=== PATIENT | female | born 1990 | race Caucasian/White ===

== ENCOUNTER 2016-10-06 08:23 | Inpatient (IN) ==
[2016-10-06] MEDS ORDERED: Famotidine 20 MG/2 ML VIAL IVP PRN (08:49)
[2016-10-06] MEDS ORDERED: Naloxone 0.4 MG/ML INJ IVP PRN (08:49)
[2016-10-06] MEDS ORDERED: Ondansetron 4 MG/2 ML VIAL IVP PRN (08:49)
[2016-10-06] MEDS ORDERED: Metoclopramide 10 MG/2 ML VIAL IVP PRN (08:49)
[2016-10-06 09:12] LABS: Basophils % 0.2 %; Eosinophils % 0.4 %; Hematocrit 37.8 % (35.3-44.9); Hemoglobin 12.9 g/dL (11.5-15.4); Immature Granulocytes % 0.5 % (0-4); Lymphocytes # 1.7 K/mcL (0.6-4.6); Mean Corpuscular HGB Conc 34.1 g/dL (31.6-35.5); Mean Corpuscular Hemoglobin 29.7 pg (28.0-33.3); Mean Corpuscular Volume 87.1 fL (83.0-100.0); Mean Platelet Volume 10.4 fL (9.4-12.4); Monocytes # 0.6 K/mcL (0.0-1.3); Monocytes % 5.3 %; Neutrophils # 8.7 K/mcL (1.6-8.9); Platelet Count 274 K/mcL (140-400); Red Blood Count 4.34 M/mcL (3.82-4.97); Red Cell Distribution Width 12.8 % (11.5-14.5); Segmented Neutrophils % 78.6 %
--- NOTE | 2016-10-06 12:21 | OB/GYN History & Physical ---
Date of Encounter: 10/06/16 Time of Encounter: 12:19 Assessment and Plan (1) with 37 or more completed weeks gestation Current visit: Yes Status: Acute ([id number]) 37w 4d SROM @ 04:45 this AM. Clear, moderate, no odor. Patient is followed by Dr. Ingram. Plan on intermittent monitoring. Observe for onset and progression of labor. (2) SROM (spontaneous rupture of membranes) Current visit: Yes Status: Acute as above. History of Present Illness Chief complaint: SROM HPI: Ms. Callejas is a 26 year old female presents from home with chief complaint SROM at 04:45 this morning. ([id number]) 37w 4d. Fluid described as moderate in qty, clear, no odor. Medications: vitamin PMH: migraine Allergies: hydromorphone - nausea, vomit OB: Dr. Ingram Blood type B+ GBS (-) Rubella (+) HbSAg (-, 03/09/17) T. Pallidum (-) Varicella (+) Male child Anticipated name: Denis Anticipate breast feeding Preferred horticultural services supervisor: [facility] Request circumcision. Past Med Surg Social Fam HX - Past Medical History Medical history: migraine, thyroid disease Psychiatric history: no psych history - Past Surgical History Surgical History: no surgical history - Social History Smoking Status: Never smoker Smokeless Tobacco Status: No Alcohol use: none Drug use: none - Family History Grandmother Hx Family Endocrine Disorder: Yes (diabetes) Obstetrical History - Pregnancies : 2 Para: 0 Term: 0 : 0 Ab's: 1 Livin Medications and Allergies Vit/Iron Fumarate/FA [ Tablet] 1 each PO DAILY 10/06/16 [ History] Allergies Hydromorphone [From Dilaudid] Adverse Reaction (Verified 10/06/16 08:34) Vomiting Review of System OB - Cardiovascular Cardiovascular: no chest pain, no dyspnea on exertion, no leg edema - Respiratory Respiratory: no cough, no chest congestion - Gastrointestinal Gastrointestinal: no abdominal pain, no change in stool character - Genitourinary Genitourinary: vaginal discharge (SROM) - Neurological Nerological: no abnormal gait Exam - Constitutional Constitutional: well developed, well nourished, no acute distress, average body habitus - HEENT HEENT: Mucus Membranes Moist - Lungs Respiratory exam: CTAB - Cardiovascular Cardiovascular exam: RRR, +S1, +S2 - Breasts Breast: bilateral: normal - Abdomen Abdomen: Present: bowel sounds normal, gravid, non tender - Extremities Extremities exam: normal capillary refill, normal inspection, radial pulses palpable and symetrical Results Result Diagrams: 10/06/16 09:00 All other labs normal. - VTE Reasons for not Prescribing Prophylaxis: Treatment not Indicated - Low risk for VTE
[2016-10-06] MEDS ORDERED: Ringers Solution, Lactated 1,000 ML IVC STA (17:56)
[2016-10-06] MEDS ORDERED: Oxytocin 20 units/ LR 1000 mL 20 UNIT/1,000 ML BAG IVC SCH (17:57)
[2016-10-06] MEDS ORDERED: Oxytocin 20 units/ LR 1000 mL 20 UNIT/1,000 ML BAG IVC ONE (18:04)
--- NOTE | 2016-10-06 18:14 | Anesthesia Evaluation PreOp ---
Date of Encounter: 10/06/16 Time of Encounter: 18:12 - Past History Planned Operation: JOAQUIM Cardiac History: Denies any Significant Hx Pulmonary History: Denies Any Significant HX TRAVELING SECRETARY History: Other (migraines that cause "stroke like symptoms" not on any tx currently) Other Medical History: Denies Any Significant HX Anesthesia History: No Prior Anesthetic Complications : Yes (37.4) Alcohol Use: none Drug use: none Medications and Allergies Vit/Iron Fumarate/FA [ Tablet] 1 each PO DAILY 10/06/16 [ History] Allergies Hydromorphone [From Dilaudid] Adverse Reaction (Verified 10/06/16 08:34) Vomiting - Meds/Allergy Pre-op Review Medications Reviewed: Yes Allergies Reviewed: Yes Beta Blockers on Current Med List: No Anesthesia Results - Labs 10/06/16 09:00 Anesthesia Exam Height: 5' Weight: 71kg NPO (# of Hours): 1hr Pain Scale: 1 Pain Scale Used: Numeric (1 - 10) - HEENT Pupil (Motor): Pupils equal Mallampati: II Teeth: Normal Oral Opening: Greater than 3 - TRAVELING SECRETARY LOC: Oriented TRAVELING SECRETARY Motor: Normal RUE, Normal LUE, Normal RLE, Normal LLE, Normal Face TRAVELING SECRETARY Sensory: Normal: RUE, LUE, RLE, LLE, Face - Cardiac Rhythm: Regular Murmur: None JVD: No Carotid Bruit: No - Pulmonary Breath Sounds: bilateral Clear Respiratory Effort: Symmetrical Anesthesia Assess/Plan ASA Score: 2 Modified Masha Scale for Level of Consciousness: Cooperative, oriented, and tranquil Anesthetic Plan: General (plan b), Regional (plan a) Autologous Blood: No (jehovahs witness (will accept epo and albumin)) Monitoring Plan: Standard Monitors
[2016-10-06] MEDS ORDERED: Ringers Solution, Lactated 500 ML IVC ONE (18:15)
[2016-10-06] MEDS ORDERED: EPHEDrine 50 MG/ML VIAL IVP PRN (18:15)
[2016-10-06] MEDS ORDERED: Epidural Premix (fent/bupiv) 110 ML EP SCH (18:15)
[2016-10-06] MEDS ORDERED: Penicillin G Potassium 5,000,000 UNIT in D5% in Water (Mini-Bag+) 100 ML IVPB ONE (18:18)
[2016-10-06] MEDS: Mag Hydrox/Al Hydrox/Simeth 30 ML UDC PO PRN (20:14)
--- NOTE | 2016-10-06 20:38 | OB Labor Progress Note ---
Date of Encounter: 10/06/16 Time of Encounter: 18:00 Labor Progress Note - Subjective Subjective: NOTE: Patient's last name is Júnior. Her 's last name is Victoriano. I spoke with the patient regarding the recommendation to begin pitocin. She expressed her frustration at the lack of progress without induction and was agreeable to beginning the medication. We discussed the rate of titrating the drip, which we have traditionally used Q30min. The patient would prefer Q40min. On presentation, the patient was offered induction which she declined preferring a trial for expectant management; at that time we discussed risks of doing so including risk of chorioamnionitis and the potential need for prophylactic antibiotics. Given the lack of progression and beginning of induction, the patient and I again discussed her risk of chorioamnionitis. The patient and were under the impression that something must happen at 24hrs post SROM. I clarified that studies have shown the risk for chorioamnionitis increases substantially after 24 hours; there is no hard rule rather compelling data regarding risks. They were questioning at what time would a be necessary. I explained to them there is no hard rule, rather the clinical decision is based on management of risk as evidenced by and maternal tolerance of labor. SROM was 04:45 this morning; appx 13hrs prior to our discussion. We discussed the nature of the membranes and mucous plug protecting against ascending infection, which was lost at SROM. We discussed risk to her and the fetus/. She and her were agreeable to beginning prophylaxis. She did desire to have literature on chorioamniotis. I provided her with UpToDate articles and extended the offer that I discuss with them any questions they may have: (1) rupture of membranes, (2) Intra-amniotic infection (clinical chorioamnionitis or triple I) , (3) Clinical features, evaluation, and diagnosis of sepsis in term and late infants. - Cervix Cervix: Per nursing: dilation 2-3, effacement 80%; unchanged since presentation. - Heart Tones Heart Tones: Reactive. Ranging 120-140s. - [place]: Pre-pitocin: Short duration mild contractions of inconsistent frequency. - Interventions Interventions: as per plan. - Plan Plan: 1. Induction of labor -Continuous heart rate monitor -Continuous TOCO monitor -Began pitocin drip per protocol with modification for titration Q40 min. 2. PROM SROM at 04:45am on 10/06/16. -Began empiric PCN per GBS protocol. -Per nursing, patient has been afebrile from presentation to start of PCN.
--- NOTE | 2016-10-06 21:30 | OB/GYN Progress Note ---
Date of Encounter: 10/06/16 Time of Encounter: 21:28 - Assessment and Plan (1) with 37 or more completed weeks gestation Current Visit: Yes Status: Acute (2) SROM (spontaneous rupture of membranes) Current Visit: Yes Status: Acute IUPC placed . Proceeding with pitocin / antibiotics . Subjective - Subjective Antepartum ROS: contractions Objective - Vital Signs Vital Signs: Intake and Output 10/06/16 10/06/16 10/06/16 07:59 15:59 23:59 Other: Weight 71.2 kg Patient Weight 10/06/16 23:59 Weight 71.2 kg - Exam FHR: category 1 Cervical dilation: 4 Cervix effacement: 90 station: -1
[2016-10-06] MEDS: Penicillin G Potassium 2,500,000 UNIT in D5% in Water 100 ML IVPB SCH (23:09)
[2016-10-07] MEDS ORDERED: Epidural Premix (fent/bupiv) 110 ML EP ONE ×3 (00:19→10:31)
[2016-10-07] MEDS ORDERED: Lidocaine/EPI 1:200k 2% PF 20 ML VIAL ONE (00:53)
[2016-10-07] MEDS ORDERED: *HR* FentaNYL (PF) 100 MCG/2 ML VIAL ONE ×3 (00:53→08:06)
--- NOTE | 2016-10-07 01:02 | Anesthesia Procedures ---
Date of Encounter: 10/07/16 Time of Encounter: 00:59 Procedures: Anesthesia - Epidural/Spinal Patient ID/Chart reviewed: Yes Patient examined: Yes OB Eval: Gestational age: 37.4 OB Eval: : 2 OB Eval: Hx Para: 0 OB Eval: Dilated at (cm): 4 OB Eval: Contractions: Non-stressed pattern Consent Obtained: Yes Supplemental Oxygen: None/Room Air Site Prep: Aseptic Technique, Sterile prep and drape, Povidone-Iodine 1% Patient position: upright Local Anesthetic: Lidocaine 1% Amount of Local Anesthetic used: 3 Touhy Needle Gauge: 18 Touhy Needle Depth (cm): 6 Catheter Depth at Skin (cm): 15 Test Dose (1.5% Lido + Epi): Volume given (mls): 3 Test Dose Result: Negative Loading Dose: Fentanyl (mcg): 100 Loading Dose: Other: 10ml of epidural pharm bag premix, 5ml 2%lido w/ep Loading Dose Administered: Thru Catheter Infusion Rate (mls/hr): 12 (3ml [id number]) Catheter Secured in Place: Tegaderm, Tape Interspace Used: L4-L5 Loss of Resistance (EDELMIRA): Yes Blood: No CSF: No Paresthesia: No Procedure: pt tolerated procedure well. no complications. extremely nervous. 139/79 hr 78 fhr 150
[2016-10-07] MEDS: Penicillin G Potassium 2,500,000 UNIT in D5% in Water 100 ML IVPB SCH ×4 (02:54→15:51)
[2016-10-07] MEDS: Ringers Solution, Lactated 1,000 ML IVC SCH ×2 (02:54→08:37)
--- NOTE | 2016-10-07 06:35 | Anesthesia Progress Note ---
Date of Encounter: 10/07/16 Time of Encounter: 06:34 Anesthesia Note - Note Note: 10/07/16 06:34 called for increased pain during contractions. 100mcg fentanyl and 5ml of 2% lidocaine with epi. rate increased to 16ml/hr. bolus 5ml q 15min pcea. vss. fhr stable. 159/79 hr 88
[2016-10-07] MEDS ORDERED: *HR* Ropivacaine/PF 0.2% 10 ML AMPUL ONE (08:07)
--- NOTE | 2016-10-07 08:38 | Anesthesia Progress Note ---
Date of Encounter: 10/07/16 Time of Encounter: 08:30 Anesthesia Note - Note Note: 10/07/16 08:30 Called to patient's room for c/o abdominal pain 10/10 with contractions. Patient was previously bolused with 2% lidocaine and fentanyl at 0630 this morning and received no relief. Upon physical assessment of the catheter it was revealed that the tegaderm was torn, exposing the epidural catheter at the point of insertion. Discussed the immediate need to remove the existing catheter and risks/benefits of inserting a new epidural catheter to manage pain. Patient agreed and plan discussed with Dr Magana. After sterile prep and drape epidural inserted at L2-3 x 1 attempt, good EDELMIRA at 7 cm, bolus thru needle with 5cc 0.2% ropivicaine and 2cc fentanyl and 3cc NSS, catheter threaded to 14 cm and test dose of 4cc 1.5% lido with epi 1:200,000 given with negative result. Gtt resumed at 16cc hr, which was previous rate. No change in FHR, no patient distress. BP monitored and recorded in nursing notes.
[2016-10-07] MEDS ORDERED: *HR* Promethazine 25 MG/ML VIAL IVP ONE (09:11)
[2016-10-07] MEDS ORDERED: *HR* Promethazine 25 MG/ML VIAL ONE (09:16)
[2016-10-07] MEDS: Mag Hydrox/Al Hydrox/Simeth 30 ML UDC PO PRN ×2 (13:09→21:29)
--- NOTE | 2016-10-07 13:28 | OB Labor Progress Note ---
Date of Encounter: 10/07/16 Time of Encounter: 13:27 Labor Progress Note - Subjective Subjective: Pt. comfortable with epidural - Cervix Cervix: 9/100%/VTX/0,+1 - Heart Tones Heart Tones: Reactive FHR - [place] Landen: Contractions every 2 minutes - Interventions Interventions: Forebag palpated. AROM performed with small amount of fluid.
[2016-10-07] MEDS ORDERED: Lidocaine 1% 20 ML MDV ONE (17:06)
--- NOTE | 2016-10-07 18:09 | OB/GYN Procedure Note ---
Delivery - Delivery Date: 10/07/16 Provider: Josr Magana Intrapartum events: prolonged labor- > = 20hr Delivery induction: none Delivery augmentation: pitocin Delivery monitor: external FHT, external uterine, internal uterine Anesthesia: epidural Estimated Blood Loss: 600 (prolonged labor) - Infant (s) Infant A Delivery Date: 10/07/16 Infant Delivery Time: 17:13 Presentation: vertex Position: REKHA Route of delivery: Gender: Male Viability: Viable Pounds: 6 Ounces: 4 Weight Gram: 2835 kg at 1 minute: 9 at 5 mins: 9 Shoulder Dystocia: not encountered Placenta: spontaneous Cord: 3 umbilical vessels - Repair Episiotomy: none Laceration Description: Perineal - 2nd Degree, Labial - Complications Delivery complications: none - Disposition Mom disposition: stable in LDR [place] disposition: stable in LDR - Comments Comments: Patient progressed to complete dilatation and had a spontaneous vaginal delivery of a viable male infant. scores were 9 and 9 at one and 5 minutes respectively, and the weighed 6 lbs. 4 oz. The placenta delivered spontaneously and appeared intact. A second-degree perineal laceration was repaired in usual fashion with 3-0 Vicryl suture. Bilateral labial lacerations were repaired with 4-0 Vicryl suture. All sponge needle and instrument counts reported as correct. Estimated blood loss 600 mL. Rectal sphincter muscle was intact. No shoulder dystocia was encountered, no nuchal cord was present.
[2016-10-07] MEDS ORDERED: Acetaminophen 325 MG TABLET PO PRN (21:15)
[2016-10-07] MEDS ORDERED: *HR* Acetaminophen w/Cod 300-30 mg 1 TAB TABLET PO PRN (21:15)
[2016-10-07] MEDS ORDERED: Oxytocin 20 units/ LR 1000 mL 20 UNIT/1,000 ML BAG IVC ONE (21:15)
[2016-10-07] MEDS ORDERED: Oxytocin 20 units/ LR 1000 mL 20 UNIT/1,000 ML BAG IV SCH (21:15)
[2016-10-08 06:13] LABS: Basophils % 0.1 %; Eosinophils % 0.3 %; Hematocrit 25.9 % (35.3-44.9); Immature Granulocytes % 0.5 % (0-4); Lymphocytes # 2.6 K/mcL (0.6-4.6); Lymphocytes % 18.8 %; Mean Corpuscular HGB Conc 32.4 g/dL (31.6-35.5); Mean Corpuscular Volume 89.3 fL (83.0-100.0); Mean Platelet Volume 10.1 fL (9.4-12.4); Monocytes # 0.7 K/mcL (0.0-1.3); Monocytes % 5.4 %; Neutrophils # 10.2 K/mcL (1.6-8.9); Platelet Count 195 K/mcL (140-400); Red Cell Distribution Width 13.1 % (11.5-14.5); Segmented Neutrophils % 74.9 %
[2016-10-08 06:16] LABS: Hemoglobin 8.4 g/dL (11.5-15.4)
[2016-10-08] MEDS: Prenatal Vit/FA 1 EACH TABLET PO SCH (07:55)
[2016-10-08] MEDS: Ibuprofen 600 MG TABLET PO PRN (07:55)
--- NOTE | 2016-10-08 15:16 | Discharge Summary ---
Date of Encounter: 10/08/16 Time of Encounter: 15:13 - Discharge Diagnosis (1) Vaginal delivery Priority: Primary Status: Acute Comments: Pt states feeling better. Has slight headache, but this is normal for her on rainy days. Pt states feeling has improved in right leg (was numb earlier). States minimal bleeding and cramping. desires discharge home this evening. - Discharge Medications Prescriptions: Ibuprofen [Motrin] 600 mg PO Q6HR PRN #60 tablet PRN Reason: Cramping Docusate [Colace] 100 mg PO BID #60 capsule Ferrous Sulfate 325 mg PO DAILY #60 tablet Home Medications: Vit/Iron Fumarate/FA [ Tablet] 1 each PO DAILY 10/06/16 [ History] Acetaminophen [Tylenol] 650 mg PO Q6HR PRN #0 tablet 10/08/16 [Rx] Breast Pump [BREAST PUMP] 1 each .ROUTE AD #1 each 10/08/16 [Rx] Docusate [Colace] 100 mg PO BID #60 capsule 10/08/16 [Rx] Ferrous Sulfate 325 mg PO DAILY #60 tablet 10/08/16 [Rx] Ibuprofen [Motrin] 600 mg PO Q6HR PRN #60 tablet 10/08/16 [Rx] Vit/FA 1 each PO DAILY tablet 10/08/16 [Rx] Allergies/Adverse Reactions: Allergies Hydromorphone [From Dilaudid] Adverse Reaction (Verified 10/06/16 08:34) Vomiting Data Procedures and tests throughout hospitalization: Laboratory Tests 10/06/16 10/08/16 09:00 05:40 WBC 11.0 13.6 H RBC 4.34 2.90 L Hgb 12.9 8.4 L D Hct 37.8 25.9 L MCV 87.1 89.3 MCH 29.7 29.0 MCHC 34.1 32.4 RDW 12.8 13.1 Plt Count 274 195 MPV 10.4 10.1 Immature Gran % 0.5 0.5 Seg Neutrophils % 78.6 74.9 Lymphocytes % 15.0 18.8 Monocytes % 5.3 5.4 Eosinophils % 0.4 0.3 Basophils % 0.2 0.1 Neutrophils # 8.7 10.2 H Lymphocytes # 1.7 2.6 Monocytes # 0.6 0.7 Eosinophils # 0.0 0.0 Basophils # 0.0 0.0 Labs on day of discharge: Labs from last 24 hours 10/08/16 05:40 WBC 13.6 H RBC 2.90 L Hgb 8.4 L D Hct 25.9 L MCV 89.3 MCH 29.0 MCHC 32.4 RDW 13.1 Plt Count 195 MPV 10.1 Immature Gran % 0.5 Seg Neutrophils % 74.9 Lymphocytes % 18.8 Monocytes % 5.4 Eosinophils % 0.3 Basophils % 0.1 Neutrophils # 10.2 H Lymphocytes # 2.6 Monocytes # 0.7 Eosinophils # 0.0 Basophils # 0.0 Date of admission: 10/06/16 08:49 Primary care physician: PCP NO Consults: 10/07/16 21:15 Consult to Driving School Instructor [CONS] Routine Comment: Vaginal delivery, consult needed Discharging clinician: Edie Ceballos Anticipated date of discharge: 10/08/16 - Patient Status Disposition: Home, Self-Care Condition: Good Functional capacity at discharge: independent ambulation Overall status at discharge: patient is back to baseline - Discharge Instructions Follow Up With: Santos Ingram MD [Partnered Physician] - (November 06, 2016 @ 2:30 pm) - Diet and Activity Activity: resume usual activities as tolerated Diet: regular diet Hospital Course Reason for admission: rupture of membranes Delivery: Episiotomy: none Laceration: 2nd degree Other procedures: none complications: none Discharge diagnosis: IUP at term delivered [place] baby: male Hospital course: Delivery - Delivery Date: 10/07/16 Provider: Josr Magana Intrapartum events: prolonged labor- > = 20hr Delivery induction: none Delivery augmentation: pitocin Delivery monitor: external FHT, external uterine, internal uterine Anesthesia: epidural Estimated Blood Loss: 600 (prolonged labor) - Infant (s) Infant A Infant Delivery Date: 10/07/16 Infant Delivery Time: 17:13 Presentation: vertex Position: REKHA Route of delivery: Gender: Male Viability: Viable Pounds: 6 Ounces: 4 Weight Gram: 2835 kg at 1 minute: 9 at 5 mins: 9 Shoulder Dystocia: not encountered Placenta: spontaneous Cord: 3 umbilical vessels - Repair Episiotomy: none Laceration Description: Perineal - 2nd Degree, Labial - Complications Delivery complications: none - Disposition Mom disposition: stable in . Meeting all PP milestones. Stable for discharge Time Attestation: Total time spent providing and/or coordinating discharge services: Time Spent: Less than 30 minutes Exam - Constitutional Vitals: Temp Pulse Resp BP Pulse Ox 98.3 F 75 16 108/72 100 10/08/16 11:55 10/08/16 11:55 10/08/16 11:55 10/08/16 11:55 10/08/16 04:15 General appearance IM: A&O X 3, pleasant, no acute distress - Respiratory Respiratory exam: Present: CTAB - Cardiovascular Cardiovascular exam IM: Present: RRR, +S1, +S2 - GI/Abdominal GI/Abdominal exam IM: soft - Uterine Tone: Firm Uterus Position: Midline - Extremities Exam Extremities exam IM: Present: normal inspection - Neurological Exam Neurological exam: normal gait, oriented X3 - Psychiatric Additional comments: reports good mood
[2016-10-08] MEDS ORDERED: Mag Hydrox/Al Hydrox/Simeth 30 ML UDC PO PRN (22:05)
--- NOTE | 2016-10-09 08:20 | Discharge Summary ---
Date of Encounter: 10/09/16 Time of Encounter: 08:18 - Discharge Diagnosis (1) Vaginal delivery Priority: Primary Status: Acute Comments: Pt meeting all milestones. Pt in agreement with discharge. - Discharge Medications Prescriptions: Ibuprofen [Motrin] 600 mg PO Q6HR PRN #60 tablet PRN Reason: Cramping Breast Pump [BREAST PUMP] 1 each .ROUTE AD #1 each Docusate [Colace] 100 mg PO BID #60 capsule Ferrous Sulfate 325 mg PO DAILY #60 tablet Home Medications: Vit/Iron Fumarate/FA [ Tablet] 1 each PO DAILY 10/06/16 [ History] Acetaminophen [Tylenol] 650 mg PO Q6HR PRN #0 tablet 10/08/16 [Rx] Breast Pump [BREAST PUMP] 1 each .ROUTE AD #1 each 10/08/16 [Rx] Docusate [Colace] 100 mg PO BID #60 capsule 10/08/16 [Rx] Ferrous Sulfate 325 mg PO DAILY #60 tablet 10/08/16 [Rx] Ibuprofen [Motrin] 600 mg PO Q6HR PRN #60 tablet 10/08/16 [Rx] Vit/FA 1 each PO DAILY tablet 10/08/16 [Rx] Allergies/Adverse Reactions: Allergies Hydromorphone [From Dilaudid] Adverse Reaction (Verified 10/06/16 08:34) Vomiting Data Procedures and tests throughout hospitalization: Laboratory Tests 10/06/16 10/08/16 09:00 05:40 WBC 11.0 13.6 H RBC 4.34 2.90 L Hgb 12.9 8.4 L D Hct 37.8 25.9 L MCV 87.1 89.3 MCH 29.7 29.0 MCHC 34.1 32.4 RDW 12.8 13.1 Plt Count 274 195 MPV 10.4 10.1 Immature Gran % 0.5 0.5 Seg Neutrophils % 78.6 74.9 Lymphocytes % 15.0 18.8 Monocytes % 5.3 5.4 Eosinophils % 0.4 0.3 Basophils % 0.2 0.1 Neutrophils # 8.7 10.2 H Lymphocytes # 1.7 2.6 Monocytes # 0.6 0.7 Eosinophils # 0.0 0.0 Basophils # 0.0 0.0 Date of admission: 10/06/16 08:49 Primary care physician: PCP NO Consults: 10/07/16 21:15 Consult to Lean Sensei [CONS] Routine Comment: Vaginal delivery, consult needed Discharging clinician: Edie Ceballos Anticipated date of discharge: 10/09/16 - Patient Status Disposition: Home, Self-Care Condition: Good Functional capacity at discharge: independent ambulation Overall status at discharge: patient is back to baseline - Discharge Instructions Follow Up With: Santos Ingram MD [Partnered Physician] - (November 06, 2016 @ 2:30 pm) Additional Instructions: Perineal Care: Always wipe front to back Change your pad frequently Use your melva bottle with warm water and spray front to back Do not douche, use tampons, have sexual intercourse or put anything in your vagina for 4-6 weeks after delivery Bleeding: Vaginal bleeding can last up to 6 weeks Your menstrual period may return as early as 6 weeks after you are discharged from the hospital Julian/Stitches Care: Vaginal Delivery Vaginal stitches will dissolve within 4-6 weeks Follow perineal care instructions Care Stitches will dissolve on their own If you have julian, they will need to be removed in the doctors office within 5-7 days. You may shower with stitches or julian Drip plan or soapy water over the incision to clean. Pat dry gently with a clean towel. Make sure you completely dry under the skin folds DO NOT USE powders, lotions, rubbing alcohol or hydrogen peroxide on or around your incision. This will slow your wound healing It is normal to have soreness, burning, tingling, itchiness and/or numbness as your incision heals Activity: Rest frequently Do not lift anything heavier than a gallon of milk, up to 10-15 pounds No driving for 1-2 weeks for Vaginal delivery No driving for 2-4 weeks for delivery Take stairs slowly, one at a time Gradually increase your daily activity until you are back to your normal routine Do not exercise until you have had your follow-up appointment Bathing: Take a shower daily Do not take a tub bath for the first 4 weeks Diet: Drink plenty of water and fruit juices Eat a well-balanced diet with foods high in fiber such as fruits and vegetables Depression: Your hormones have a major impact on your feelings and emotions. Hormone imbalance may cause changes in your mood, creating unfamiliar thoughts and actions. Support is available to help you understand and cope with these feelings and mood changes. If you answer yes to any of the following questions, please call your health care provider: Are you having trouble sleeping? Are you feeling isolated? Have you lost your appetite? Are you having thoughts of hurting yourself or others? WARNING SIGNS: Heavy bleeding from the vagina (blood is bright red and soaks a sanitary pad in an hour or less.) Passing a blood clot larger than your fist Discharge from the vagina that has a bad odor Temperature over 100.4 F, or if you feel cold and have chills An episiotomy site that is warm, swollen or oozing. Use a mirror if needed Urination (pee) that is painful, very red and swollen or leaking fluid An incision that is painful, very red and swollen and leaking fluid An incision that has come open Breasts that are painful or full with flu like symptoms Redness, warmth or swelling in the calf of your leg Trouble breathing, dizziness, visual disturbance or faintness *Notify your health care provider immediately or go to the nearest Emergency Room if you experience any of the above signs.* To contact the nurses station 24 hours a day, For non-urgent, routine questions, please call the office at - Diet and Activity Activity: resume usual activities as tolerated Diet: regular diet Hospital Course Reason for admission: rupture of membranes Delivery: Episiotomy: none Laceration: 2nd degree Other procedures: none complications: none Discharge diagnosis: IUP at term delivered Hospital course: Delivery - Delivery Date: 10/07/16 Provider: Josr Magana Intrapartum events: prolonged labor- > = 20hr Delivery induction: none Delivery augmentation: pitocin Delivery monitor: external FHT, external uterine, internal uterine Anesthesia: epidural Estimated Blood Loss: 600 (prolonged labor) - (s) Infant A Infant Delivery Date: 10/07/16 Infant Delivery Time: 17:13 Presentation: vertex Position: REKHA Route of delivery: Gender: Male Viability: Viable Pounds: 6 Ounces: 4 Weight Gram: 2835 kg at 1 minute: 9 at 5 mins: 9 Shoulder Dystocia: not encountered Placenta: spontaneous Cord: 3 umbilical vessels - Repair Episiotomy: none Laceration Description: Perineal - 2nd Degree, Labial - Complications Delivery complications: none - Disposition Mom disposition: stable in PP and appropriate for discharge Time Attestation: Total time spent providing and/or coordinating discharge services: Time Spent: Less than 30 minutes Exam - Constitutional Vitals: Temp Pulse Resp BP Pulse Ox 98.9 F 86 16 117/76 98 10/08/16 22:00 10/08/16 22:00 10/08/16 22:00 10/08/16 22:00 10/08/16 22:00 General appearance IM: A&O X 3, pleasant, no acute distress - Respiratory Respiratory exam: Present: CTAB - Cardiovascular Cardiovascular exam IM: Present: RRR, +S1, +S2 - GI/Abdominal GI/Abdominal exam IM: normal bowel sounds, soft - Uterine Tone: Firm - Extremities Exam Extremities exam IM: Present: normal capillary refill, normal inspection - Neurological Exam Neurological exam: normal gait, oriented X3 - Psychiatric Additional comments: reports good mood.
[2016-10-09 09:27] VITALS: BP 113/72
[2016-10-09] MEDS: Prenatal Vit/FA 1 EACH TABLET PO SCH (09:30)
[2016-10-09] MEDS: Ibuprofen 600 MG TABLET PO PRN (09:31)
== END 2016-10-09 09:35 | disposition home or self-care (01) | DRG 560 ==
LOC: INTOOBSV 08:23 → 1NENULAB 08:23 → 1NENUOBS 10-07 20:03
PROVIDERS: ADMIT Student in an Organized Health Care Education/Training Program; ATTEND Student in an Organized Health Care Education/Training Program